=== PATIENT | female | born 1950 | race Caucasian/White ===

== ENCOUNTER → 2016-05-10 | Outpatient (CLI) | payer OTHER ==
[2016-05-10 09:11] LABS: HEMATOCRIT 43.5 % (37.0-47.0); HEMOGLOBIN 14.5 g/dL (12.0-16.0); MEAN CORPUSCULAR HEMOGLOBIN 26.2 PG (27-31); MEAN CORPUSCULAR HGB CONC 33.3 g/dL (33-37); MEAN PLATELET VOLUME 9.4 FL (7.4-12.2); RDW COEFFICIENT OF VARIATION 15.4 % (11.5-14.5); RED BLOOD COUNT 5.53 10^6/uL (4.20-5.40); WHITE BLOOD COUNT 11.33 10^3/uL (4.8-10.8)
[2016-05-10 10:10] LABS: ASPARTATE AMINO TRANSFERASE 19 IU/L (8-39); BILIRUBIN,TOTAL 0.5 mg/dL (0.3-1.2); BLOOD UREA NITROGEN 16 mg/dL (7-22); BUN/CREATININE RATIO 26.66 (6-20); CALCIUM 9.1 mg/dL (8.7-10.7); CHLORIDE 112 meq/L (98-112); CREATININE 0.6 mg/dL (0.50-1.20); EST GLOMERULAR FILTRATION > 60 (>60 ml/min/1.73m(2)); GLUCOSE 86 mg/dL (78-110); SODIUM 138 meq/L (135-145)
[2016-05-10 10:11] LABS: HDL CHOLESTEROL 41 mg/dL (40-150); TOTAL PROTEIN 6.9 g/dL (6.1-8.0); TRIGLYCERIDES 172 mg/dL (44-200)
== END ==
LOC: LAB 08:50
PROVIDERS: ATTEND Obstetrics & Gynecology Gynecology
DX: E03.9 Hypothyroidism, unspecified (principal); I10 Essential (primary) hypertension; K21.9 Gastro-esophageal reflux disease without esophagitis; E78.00 Pure hypercholesterolemia, unspecified
CPT/HCPCS: 36415; 80053; 80061; 85027

== ENCOUNTER 2016-06-19 10:39 | Emergency (ER) | payer OTHER ==
--- NOTE | 2016-06-19 11:06 | PDOC ---
Psych/Suicidal/OD HPI - General Chief Complaint: Psychiatric Complaint Stated Complaint: Suicidal Ideations Date Seen by Provider: 06/19/16 Time Seen by Provider: 11:01 - History of Present Illness Initial Comments: Patient is a very nice 66-year-old woman who presents to the emergency department with complaints of suicidal ideation. She states that over the last few days she's had increasing suicidal ideation and develop a plan where she would take her and her dogs and leave her car running and by asphyxiation by carbon monoxide poisoning. She is stating that she feels more and more despondent and less and less hopeful. She apparently discussed with her psychiatrist office and her mental health providers about this over the phone there was concern she was brought here to the emergency department for evaluation. She also has a friend here with her now. She does not have any physical complaints or acute medical needs or issues at this time other than her psychiatric problems. She's been on Zoloft she thinks for about 5 years she is on 100 mg daily she is also on Abilify 10 mg daily has been on this for some time those are her only psychiatric medicines. - Patient Home Medications Home Medications: Home Medications Medication Instructions Recorded Confirmed Carvedilol 1 tab PO DAILY tab 03/03/15 06/19/16 Simvastatin 1 tab PO DAILY tab 03/03/15 06/19/16 Aripiprazole [Abilify] 10 mg PO DAILY 06/19/16 06/19/16 Budesonide/Formoterol Fumarate 1 inh INH DAILY 06/19/16 06/19/16 [Symbicort 160-4.5 Mcg Inhaler] Levothyroxine Sodium 25 mcg PO DAILY 06/19/16 06/19/16 Ranitidine HCl 150 mg PO DAILY 06/19/16 06/19/16 Sertraline HCl [Zoloft] 100 mg PO DAILY 06/19/16 06/19/16 - Patient Allergies Allergies/Adverse Reactions: Allergies Allergy/AdvReac Type Severity Reaction Status Date / Time bupropion HCl Allergy Intermediate rash Verified 06/19/16 10:56 [From Wellbutrin] Sulfa (Sulfonamide Allergy Intermediate rash Verified 06/19/16 10:56 Antibiotics) ziprasidone HCl [From Geodon] AdvReac Intermediate welts and Verified 06/19/16 10:56 swelling ziprasidone mesylate AdvReac Intermediate welts and Verified 06/19/16 10:56 [From Geodon] swelling ROS - Limitations ROS Limitations: No Limitations Constitution: REPORTS: Denies Symptoms Cardiovascular: REPORTS: Denies Cardiac Symptoms Respiratory: REPORTS: Denies Resp Symptoms Neurological: REPORTS: Denies Neuro Symptoms Gastrointestinal: REPORTS: Denies GI Symptoms Endocrine: REPORTS: Denies Symptoms Genitourinary: REPORTS: Denies Symptoms Eyes: REPORTS: Denies Symptoms Psychiatric: POSITIVE: Depression, Suicidal Thoughts Psych/Suicidal/OD Exam - General Appearance General Appearance: POSITIVE: No Acute Distress - HEENT HEENT: POSITIVE: Head Inspection Nml, Eyes Inspection Nml - Neurological/Psychological Mental Status: POSITIVE: Depressed Affect Orientation: POSITIVE: Oriented x3 Cranial Nerves: POSITIVE: planogrammer Intact as Tested Sensory/Motor: POSITIVE: Normal Motor Response, Normal Sensory Response - Neck/Back Neck/Back: POSITIVE: Normal Inspection - Respiratory Respiratory: POSITIVE: No Respiratory Distress - CVS Cardiovascular: POSITIVE: Regular Rate and Rhythm - Abdomen Abdomen: Soft: (All Quadrants), Normal Bowel Sounds: (All Quadrants), Denies Tenderness: (All Quadrants) - Skin Skin: POSITIVE: Intact, Normal For Race Psych/Suicidal/OD Progress - Results Reviewed by me Lab Results Reviewed: Yes Lab Results:: Laboratory Results 06/19/16 Range/Units 11:22 WBC 11.45 H (4.8-10.8) 10^3/uL RBC 5.35 (4.20-5.40) 10^6/uL Hgb 14.4 (12.0-16.0) g/dL Hct 42.4 (37.0-47.0) % MCV 79.3 L (81-99) FL MCH 26.9 L (27-31) PG MCHC 34.0 (33-37) g/dL RDW Std Deviation 45.5 (39-50) fL RDW Coeff of [place] 15.8 H (11.5-14.5) % Plt Count 253 (140-350) 10*3/uL MPV 9.6 (7.4-12.2) FL Immature Gran % (Auto) 0.3 (0-5) % Neut % (Auto) 72.3 (50-80) % Lymph % (Auto) 19.6 (10-50) % [place] % (Auto) 6.9 (5-15) % Eos % (Auto) 0.6 (0-8) % Baso % (Auto) 0.3 (0-1) % Immature Gran # (Auto) 0.03 10*3/UL Neut # (Auto) 8.28 10*3/UL Lymph # (Auto) 2.24 10*3/uL [place] # (Auto) 0.79 (0.3-0.8) 10*3/UL Eos # (Auto) 0.07 10*3/UL Baso # (Auto) 0.04 10*3/UL WBC Morphology Comment Normal morphology (NORM) Plt Morphology Comment Normal morphology (NORM) RBC Morph Comment Normal morphology (NORM) Sodium 142 (135-145) meq/L Potassium 3.6 L (3.8-5.2) meq/L Chloride 110 (98-112) meq/L Carbon Dioxide 20 L (23-33) meq/L Anion Gap 12 (5-20) BUN 13 (7-22) mg/dL Creatinine 0.8 (0.50-1.20) mg/dL Estimated GFR > 60 (>60 ml/min/1.73m(2)) BUN/Creatinine Ratio 16.25 (6-20) Glucose 96 (78-110) mg/dL Calculated Osmolality 293.0 H (267-292) mOsm/kg Calcium 9.7 (8.7-10.7) mg/dL Total Bilirubin 0.5 (0.3-1.2) mg/dL AST 20 (8-39) IU/L ALT 35 (9-52) IU/L Alkaline Phosphatase 105 (38-126) IU/L Total Protein 7.2 (6.1-8.0) g/dL Albumin 4.1 (3.5-4.8) g/dL Globulin 3.1 (2.50-4.10) g/dL Albumin/Globulin Ratio 1.30 (1.3-2.0) mg/g Salicylates < 1.0 (0-20) mg/dl Acetaminophen < 10.0 (0-30) ug/mL Serum Alcohol < 10 (0-10) mg/dL - Patient's Progress MDM / ED Course: Patient was evaluated by [facility] mental health professional who has cleared her for discharge and developed a safe plan for her. Patient is doing okay she is eager to be discharged she states she's not actively suicidal at this time. Patient will be discharged to increase her Zoloft some follow-up with her psychiatrist as soon as possible follow-up with mental health as soon as possible follow-up with primary care provider soon as possible. Patient Care Time - Estimated PCT Patient Care Time (In Minutes): 40 Vital Signs - Recent Vital Signs Vital Signs: Vital Signs (Last 8 hours) Temp Pulse Resp BP Pulse Ox 06/19/16 10:39 96.9 F 69 20 171/94 97 Discharge Clinical Impression: Depressive disorder Discharge Disposition: Discharged to Home Condition: Stable Patient Instructions Given at Discharge: Depression (ED) Additional Instructions: Increase Zoloft to 150 or 200 mg daily and discuss with your psychiatrist in the near future Follow-up with her psychiatrist as soon as possible Follow-up with her primary care provider soon as possible follow-up with mental health counseling as soon as possible Follow-up here with any increased suicidal ideation Follow Up With: ARCHANA CORNEJO [Primary Care Provider] -
[2016-06-19] MEDS ORDERED: NORMAL SALINE 10 ML SYRINGE FLUSH IVP PRN (11:07)
[2016-06-19 11:16] VITALS: RESP 20; TEMP 96.9
[2016-06-19 11:28] LABS: BASOPHILS # (AUTO) 0.04 10*3/UL; BASOPHILS % (AUTO) 0.3 % (0-1); EOSINOPHILS % (AUTO) 0.6 % (0-8); HEMATOCRIT 42.4 % (37.0-47.0); HEMOGLOBIN 14.4 g/dL (12.0-16.0); IMM GRAN % (AUTO) 0.3 % (0-5); IMM GRAN# (AUTO) 0.03 10*3/UL; LYMPHOCYTES # (AUTO) 2.24 10*3/uL; LYMPHOCYTES % (AUTO) 19.6 % (10-50); MEAN CORPUSCULAR HEMOGLOBIN 26.9 PG (27-31); MEAN PLATELET VOLUME 9.6 FL (7.4-12.2); MONOCYTES # (AUTO) 0.79 10*3/UL (0.3-0.8); MONOCYTES % (AUTO) 6.9 % (5-15); NEUTROPHILS # (AUTO) 8.28 10*3/UL; NEUTROPHILS % (AUTO) 72.3 % (50-80); RDW COEFFICIENT OF VARIATION 15.8 % (11.5-14.5); RED BLOOD COUNT 5.35 10^6/uL (4.20-5.40); WHITE BLOOD COUNT 11.45 10^3/uL (4.8-10.8)
[2016-06-19 11:29] LABS: PLATELET MORPHOLOGY COMMENT NORMAL MORPHOLOGY (NORM)
[2016-06-19 11:38] LABS: ASPARTATE AMINO TRANSFERASE 20 IU/L (8-39); BILIRUBIN,TOTAL 0.5 mg/dL (0.3-1.2); BLOOD UREA NITROGEN 13 mg/dL (7-22); BUN/CREATININE RATIO 16.25 (6-20); CALCIUM 9.7 mg/dL (8.7-10.7); CHLORIDE 110 meq/L (98-112); CREATININE 0.8 mg/dL (0.50-1.20); EST GLOMERULAR FILTRATION > 60 (>60 ml/min/1.73m(2)); GLUCOSE 96 mg/dL (78-110); POTASSIUM 3.6 meq/L (3.8-5.2); SODIUM 142 meq/L (135-145); TOTAL PROTEIN 7.2 g/dL (6.1-8.0)
[2016-06-19 11:46] LABS: SERUM ALCOHOL < 10 mg/dL (0-10)
== END 2016-06-19 12:05 | disposition home or self-care (01) ==
LOC: ER 10:39
DX: R45.851 Suicidal ideations (principal); F33.1 Major depressive disorder, recurrent, moderate; F60.9 Personality disorder, unspecified
CPT/HCPCS: 80053; 80320; 80329; 84443; 85025; 90791; 99282

== ENCOUNTER 2016-07-27 10:22 | Emergency (ER) | payer OTHER ==
[2016-07-27 10:46] VITALS: RESP 18; TEMP 96.9
--- NOTE | 2016-07-27 10:47 | PDOC ---
Upper Respiratory HPI - General Chief Complaint: Cough / URI Stated Complaint: cough Date Seen by Provider: 07/27/16 Time Seen by Provider: 10:35 Source: POSITIVE: Patient Exam Limitations: POSITIVE: No limitations Nurse's Notes Reviewed & Considered: Yes - History of Present Illness Initial Comments: The patient is a 66-year-old female who presents to the emergency department with worsening cough. She states that she had onset of upper respiratory symptoms including congestion, sore throat, cough as well as fevers and chills about a week ago. She was seen last Friday at Dr. Harrington's office and had a flu test that was negative. She thinks that her cough is gotten worse over the past couple of days and she does report some increase shortness of breath. She does have a history of asthma and takes Symbicort inhaler. She has an albuterol inhaler however has not been using this recently. - Patient Home Medications Home Medications: Home Medications Carvedilol 1 tab PO DAILY tab 03/03/15 Simvastatin 1 tab PO DAILY tab 03/03/15 Aripiprazole [Abilify] 10 mg PO DAILY 06/19/16 Budesonide/Formoterol Fumarate [Symbicort 160-4.5 Mcg Inhaler] 1 inh INH DAILY 06/19/16 Levothyroxine Sodium 25 mcg PO DAILY 06/19/16 Ranitidine HCl 150 mg PO DAILY 06/19/16 Sertraline HCl [Zoloft] 100 mg PO DAILY 06/19/16 Azithromycin [Zithromax] 250 mg PO DAILY #6 tab 07/27/16 Prometh/Codeine 10/6.25mg/5ml [Phenergan/Codeine 10/6.25mg/5ml Liq] 5 ml PO Q6H PRN #60 ml 07/27/16 predniSONE Tab [Deltasone Tab] 10 mg PO DAILY #21 tab 07/27/16 - Patient Allergies Allergies/Adverse Reactions: Allergies Allergy/AdvReac Type Severity Reaction Status Date / Time bupropion HCl Allergy Intermediate rash Verified 07/27/16 10:30 [From Wellbutrin] Sulfa (Sulfonamide Allergy Intermediate rash Verified 07/27/16 10:30 Antibiotics) ziprasidone HCl [From Geodon] AdvReac Intermediate welts and Verified 07/27/16 10:30 swelling ziprasidone mesylate AdvReac Intermediate welts and Verified 07/27/16 10:30 [From Geodon] swelling Past Medical History - heen HEENT History: Denies History Cardiovascular History: Hypertension Respiratory History: Asthma, COPD, Sleep Apnea Gastrointestinal History: Irritable Bowel Syndrome Genitourinary History: Denies History Endocrine History: Denies History Musculoskeletal History: Denies History Prosthesis or Implant: No Neurological History: Denies History Blood Disorders: Denies History Psychiatric History: Depression History of Sexually Transmitted Diseases: No Female Reproductive History: Denies History Obstetrical History: Denies History Cancer History: Denies History In Past Year Been Physically Harmed or Verbally Threatened: No History of MDRO: No History of Other Communicable Diseases: No Tobacco Use: Never Smoker Alcohol Use: None Substance Use Type: None Previous Surgical History: Yes Type / Date of Surgery: FATTY TUMORS. TONSILLECTOMY. TUBAL LIGATION. APPY Significant Family History: No pertinent family hx Past Medical History Reviewed: Reviewed - No Changes ROS - Limitations ROS Limitations: No Limitations Constitution: REPORTS: Chills (Chills initially, none currently), Fever (She did have fever and chills initially, none currently) Cardiovascular: REPORTS: Denies Cardiac Symptoms Respiratory: REPORTS: Cough Productive, Shortness Of Breath Neurological: REPORTS: Denies Neuro Symptoms Gastrointestinal: REPORTS: Denies GI Symptoms Musculoskeletal: REPORTS: Denies MS Symptoms Eyes: REPORTS: Denies Symptoms ENT: REPORTS: Congestion, Sore Throat Skin: DENIES: Rash Upper Respiratory/Fever Exam - General Appearance General Appearance: REPORTS: Alert, Cooperative, No Acute Distress - HEENT HEENT: POSITIVE: Head Inspection Nml, Eyes Inspection Nml, Ears Inspection Nml ( TMs are clear bilaterally), Nose Inspection Nml, Pharynx Inspect. Nml - Neck Neck: REPORTS: Normal Inspection - Respiratory Respiratory: REPORTS: No Respiratory Distress, Breath Sounds Normal, Speaks Full Sentences - Abdomen Abdomen: Soft: (All Quadrants), No Distention: (All Quadrants) - Cardiovascular Cardiovascular: REPORTS: Regular Rate and Rhythm, Heart Sounds Normal - Skin Skin: REPORTS: Intact, No Rash - Extremities Extremity: Normal ROM: (All Extremities), Normal Inspection: (All Extremities) Upper Resp/Fever Progress - Results Reviewed by me Xrays/CTs/US Reviewed by me: Yes Radiology Findings: Chest x-ray shows no obvious infiltrate, normal heart size. - Patient's Progress MDM / ED Course: Her chest x-ray does not show any obvious pneumonia. She will be started on Zithromax for treatment of bronchitis or early pneumonia. In addition she was started on a prednisone taper. She will continue albuterol inhaler as needed and was prescribed Phenergan with codeine as needed for cough. She is advised return to the emergency room if she develops increased shortness of breath, worsening or change in symptoms. Follow-up with primary care if no improvement in 3-5 days. - Consult Counseled: POSITIVE: Patient, RE: Radiology Results, RE: DX, RE: Need for F/U Patient Care Time - Estimated PCT Patient Care Time (In Minutes): 15 Vital Signs - Recent Vital Signs Vital Signs: Vital Signs (Last 8 hours) Temp Pulse Resp BP Pulse Ox 07/27/16 10:33 96.9 F 69 18 122/84 94 - VS Reviewed Vital Signs Reviewed: Yes Discharge Clinical Impression: Bronchitis, Asthma exacerbation Discharge Disposition: Discharged to Home Condition: Stable Prescriptions / Orders: predniSONE Tab [Deltasone Tab] 10 mg PO DAILY #21 tab Prometh/Codeine 10/6.25mg/5ml [Phenergan/Codeine 10/6.25mg/5ml Liq] 5 ml PO Q6H PRN #60 ml PRN Reason: Cough Azithromycin [Zithromax] 250 mg PO DAILY #6 tab Patient Instructions Given at Discharge: Asthma (ED), Acute Bronchitis (ED) Additional Instructions: The chest x-ray at this point does not reveal any obvious pneumonia. This likely represents bronchitis or possibly an early pneumonia not showing up on the chest x-ray. Recommend starting Zithromax 250 mg, 2 tablets today followed by 1 tablet daily for 4 days. In addition your been prescribed a short course of prednisone, take 40 mg daily for 3 days, 20 mg daily for 3 days and 10 mg daily for 3 days. Continue your inhaler and albuterol as needed. You have also been prescribed Phenergan with codeine which he can take 1 teaspoon every 6 hours as needed for cough. Return to the emergency room if increased shortness of breath, dehydration, any worsening or change in symptoms. Recommend follow-up with primary care if no improvement in 3-5 days. Follow Up With: ARCHANA CORNEJO [Primary Care Provider] -
--- NOTE | 2016-07-29 09:17 | DI ---
PA /LATERAL CHEST X-RAY, 07/27/2016 10:37 AM : Clinical History: Cough Previous Exam: Thoracic spine performed March 18, 2016 There is no acute soft tissue or bony abnormality. Heart size is normal. Lungs are clear. Mediastinal structures are normal. There are no pulmonary nodules. IMPRESSION: Normal chest x-ray.
== END 2016-07-27 11:11 | disposition home or self-care (01) ==
LOC: ER 10:22
DX: J45.901 Unspecified asthma with (acute) exacerbation (principal); J20.9 Acute bronchitis, unspecified; J02.9 Acute pharyngitis, unspecified; R05 Cough
CPT/HCPCS: 71020; 99282

== ENCOUNTER → 2016-11-11 | Outpatient (CLI) | payer OTHER ==
[2016-11-11 10:31] LABS: BASOPHILS # (AUTO) 0.05 10*3/UL; BASOPHILS % (AUTO) 0.4 % (0-1); EOSINOPHILS # (AUTO) 0.09 10*3/UL; EOSINOPHILS % (AUTO) 0.8 % (0-8); HEMATOCRIT 44.4 % (37.0-47.0); HEMOGLOBIN 14.5 g/dL (12.0-16.0); LYMPHOCYTES # (AUTO) 2.06 10*3/uL; MEAN CORPUSCULAR HGB CONC 32.7 g/dL (33-37); MEAN CORPUSCULAR VOLUME 79.6 FL (81-99); MEAN PLATELET VOLUME 9.6 FL (7.4-12.2); MONOCYTES # (AUTO) 0.86 10*3/UL (0.3-0.8); MONOCYTES % (AUTO) 7.6 % (5-15); NEUTROPHILS # (AUTO) 8.23 10*3/UL; NEUTROPHILS % (AUTO) 72.8 % (50-80); RED BLOOD COUNT 5.58 10^6/uL (4.20-5.40)
[2016-11-11 10:45] LABS: PLATELET MORPHOLOGY COMMENT NORMAL MORPHOLOGY (NORM); RBC MORPHOLOGY COMMENT NORMAL MORPHOLOGY (NORM); WBC MORPHOLOGY COMMENT NORMAL MORPHOLOGY (NORM)
== END ==
LOC: LAB 10:07
PROVIDERS: ATTEND Nurse Practitioner Family
DX: E03.9 Hypothyroidism, unspecified (principal); R53.83 Other fatigue
CPT/HCPCS: 36415; 84443; 85025

== ENCOUNTER → 2016-12-04 | Outpatient (CLI) | payer OTHER ==
--- NOTE | 2016-12-04 20:46 | DI ---
XR HIP COMPLETE MIN 2VW U/L,12/04/2016 1:12 PM: Clinical History: Right hip pain. Previous Exam: None at this facility. Findings: AP pelvis, AP right hip, and frog-leg view of the right hip are obtained, and demonstrate anatomic al ignment without fractures. A nonobstructive bowel gas pattern is seen. No pathologic calcifications a re noted. Impression: Normal right hip.
== END ==
LOC: LAB 13:07
PROVIDERS: ATTEND Obstetrics & Gynecology Gynecology
DX: M25.551 Pain in right hip (principal)
CPT/HCPCS: 73502

== ENCOUNTER → 2016-12-12 | Outpatient (CLI) | payer OTHER ==
--- NOTE | 2016-12-12 09:40 | DI ---
XR L-SPINE MIN 4 VW,12/12/2016 6:36 AM: Clinical History: Pain in the right leg and hip. Previous Exam: None at this facility. Findings: AP, lateral and oblique views of the lumbar spine are obtained, and demonstrate anatomic alignment wi thout fractures. There is no evidence of spondylolysis nor spondylolisthesis. A nonobstructive bowel gas pattern is seen. No pathologic calcifications are seen. Impression: Mild degenerative facet arthropathy otherwise unremarkable.
== END ==
LOC: RAD 06:30
PROVIDERS: ATTEND Obstetrics & Gynecology Gynecology
DX: M79.604 Pain in right leg (principal); M25.551 Pain in right hip
CPT/HCPCS: 72110